=== PATIENT | male | born 1965 | race African-American/Black ===

== ENCOUNTER 2016-12-26 15:34 | Emergency (ER) | payer MEDICARE, OTHER ==
[2016-12-26 12:06] LABS: BASOPHILS 0.2 %; BASOPHILS ABSOLUTE 0.03 10/3/uL (0.0-0.16); EOSINOPHILS 1.1 %; EOSINOPHILS ABSOLUTE 0.18 10/3/uL (0.0-0.53); HEMOGLOBIN 12.5 g/dL (13.6-17.8); IMMATURE GRANULOCYTES 0.4 %; IMMATURE GRANULOCYTES ABSOLUTE 0.06 10/3/uL (0.0-0.11); LYMPHOCYTES 11.1 %; LYMPHOCYTES ABSOLUTE 1.75 10/3/uL (0.67-4.30); MEAN CORPUS HGB CONC 33.3 g/dL (32.0-36.0); MEAN CORPUSCULAR HEMOGLOB 28.6 pg (26.0-34.0); MEAN PLATELET VOLUME 11.5 fL (9.2-13.0); MONOCYTES 7.2 %; MONOCYTES ABSOLUTE 1.14 10/3/uL (0.21-1.20); NEUTROPHILS ABSOLUTE 12.65 10/3/uL (2.02-8.40); PLATELET COUNT 120 10/3/uL (150-400); RBC DISTRIBUTION WIDTH 14.3 % (12.0-16.0); RED CELL COUNT 4.37 10/6/uL (4.7-6.1)
[2016-12-26 12:09] LABS: ASCORBIC ACID (UR NOT ORDER) 40 (NEG); BILIRUBIN, URINE NEGATIVE (NEG); ER URINALYSIS TAT 0 Hrs 09 Mins; KETONE, URINE NEGATIVE (NEG); LEUKOCYTE ESTERASE(NOT OR NEG (NEG); NITRITE (URINE) NEG (NEG); WBC (NOT ORDERED) (RFLEX) < 1 (0-5)
[2016-12-26 12:14] LABS: ER CBC TAT 0 Hrs 14 Mins; HEMATOCRIT 37.5 % (40.0-51.0); MANUAL DIFF NO %; MEAN CORPUSCULAR VOLUME 85.8 fL (80-100); WHITE BLOOD CELLS 15.8 10/3/uL (4.5-10.5)
[2016-12-26 12:23] LABS: A/G RATIO 0.9 (0.7-1.9); ALBUMIN 3.8 G/DL (3.5-5.0); CALCIUM, SERUM 8.6 MG/DL (8.5-10.4); CHLORIDE, SERUM 106 MMOL/L (96-112); CO2 (CARBON DIOXIDE) 28 MMOL/L (24-34); CREATININE 4.08 MG/DL (0.70-1.30); GFR AFRICAN AMERICAN 18 ML/MIN (>=60); GFR NON AFRICAN AMERICAN 16 ML/MIN (>=60); GLOBULIN 4.3 G/DL (2.5-4.1); GLUCOSE, SERUM 170 MG/DL (60-99); POTASSIUM, SERUM 4.4 MMOL/L (3.5-5.3); SGOT(AST) 16 U/L (5-40); SGPT(ALT) 27 U/L (5-65); SODIUM, SERUM 140 MMOL/L (135-148); TOTAL BILIRUBIN 0.5 MG/DL (0-1.2); TOTAL PROTEIN 8.1 G/DL (6.0-8.5)
[2016-12-26 12:24] LABS: ALKALINE PHOSPHATASE 98 U/L (45-117); BUN (BLOOD UREA NITROGEN) 56 MG/DL (6-23)
[2016-12-26 15:21] LABS: CPK 697 U/L (0-200); TROPONIN I 0.04 NG/ML (<0.05)
[2016-12-26 15:22] LABS: CK-MB 2.3 NG/ML
[~2016-12-26 15:34] MED LIST: APRES10B PO; APRES50 PO; ASAB PO; BRIMONIDINE0.2 % OPH; BUSPAR10 PO; CLARIT10 PO; COREG12 PO; COREG25 PO; COZ25 PO; DEMA20 PO; FERROUS SULF324 MG PO; FIORICET 50-301 EACH PO; FIORICET-COD 51 EACH PO; IMDUR30 PO; IMDUR60 PO; KLOR-CON M2020 MEQ PO; L40 PO; LANTUS SC; LIPITOR10 PO; LIQUID TEARS OPH; NOVOLOG SC; REFRESH OPH; ROCALTROL 0.0.25 MCG PO; ROCALTROL0.25 MCG PO; SUPER B COMP PO; SYMAX-SL0.125 MG PO; TRAZ100 PO; VIST25 PO; VITAMIN B COMPLEX PO; VITAMIN D1000 UNI1 PO; VITAMIN D31000 UNIT PO; VITC500 PO; Z100 PO
[2016-12-26 15:47] LABS: INFLUENZA A SCREEN NEGATIVE (NEGATIVE); INFLUENZA B SCREEN NEGATIVE (NEGATIVE)
[2016-12-26] MEDS ORDERED: VITAMIN B PO (15:50)
[2016-12-26] MEDS ORDERED: BUSPAR10 PO (15:50)
[2016-12-26] MEDS ORDERED: Z100 PO (15:51)
[2016-12-26] MEDS ORDERED: COZ25 PO (15:52)
[2016-12-26] MEDS ORDERED: DEMA20 PO (15:52)
[2016-12-26] MEDS ORDERED: ASAB PO (15:53)
[2016-12-26] MEDS ORDERED: COREG12 PO (15:53)
[2016-12-26] MEDS ORDERED: KDUR20 PO (15:53)
[2016-12-26] MEDS ORDERED: NOVOLOG SC (15:54)
[2016-12-26] MEDS ORDERED: VITC500 PO (15:54)
[2016-12-26] MEDS ORDERED: LANTUS SC (15:54)
[2016-12-26] MEDS ORDERED: TYLENOL PO (15:55)
[2016-12-26] MEDS ORDERED: XALAT OPH (15:56)
[2016-12-26] MEDS ORDERED: TEARS PURE OPH (15:57)
[2016-12-26 16:10] LABS: PROCALCITONIN 0.09 ng/mL (<0.5)
[2016-12-26 17:15] LABS: ACETONE NEG
[2016-12-26 22:34] LABS: ALLENS TEST Pos; BE (BASE EXCESS) -0.6 MEQ/L (0 +/- 2.5); CARBOXYHEMOGLOBIN 2.6 % (0-3); HEMOBLOGIN CONTENT 12.4 G/DL (14-18); INSTRUMENT SERIAL # 8087; METHEMOGLOBIN 0.3 % (0-3); O2 CONTENT 15.8 VOL% (18-24); OPERATOR ID 32214; PCO2 (CO2 TENSION) 40 MMHG (35-45); PO2 (O2 TENSION) 67 MMHG (79-93); SAMPLE Arterial
== END 2016-12-26 18:30 | disposition home or self-care (01) ==
LOC: ER 15:34
PROVIDERS: Hospitalist; Nurse Practitioner Family
DX: E11.22 Type 2 diabetes mellitus with diabetic chronic kidney disease (principal); I12.9 Hypertensive chronic kidney disease with stage 1 through stage 4 chronic kidney disease, or unspecified chronic kidney disease; N18.9 Chronic kidney disease, unspecified; D72.829 Elevated white blood cell count, unspecified; D53.9 Nutritional anemia, unspecified; Z91.041 Radiographic dye allergy status; Z88.8 Allergy status to other drugs, medicaments and biological substances; Z79.82 Long term (current) use of aspirin; Z79.4 Long term (current) use of insulin; Z79.899 Other long term (current) drug therapy
CPT/HCPCS: 36600; 71020; 80053; 81001; 82009; 82550; 82553; 82805; 83605; 83690; 84145; 84300; 84484; 85025; 85652; 87040; 87045; 87046; 87046-59; 87070; 87328; 87329; 87493; 87493-59; 87804; 87880; 87899; 87899-59; 89055; 99285

== ENCOUNTER 2017-02-12 23:11 | Inpatient (IN) | payer MEDICARE, OTHER ==
--- NOTE | ~2017-02-12 | DS ---
Discharge Summary [facility] [address] [place]. [address] NAME: RENEE HALL : 65 STATUS : ADM IN [facility]#: [id number] AGE: 52 ADM/REG DATE : 02/13/17 MR#: [id number] REPORT SERV DATE: 02/16/17 DICTATED BY: DATE: REPORT STATUS : Draft TRANSCRIBED BY: MODL DATE: 02/15/17 ADMISSION DATE: 02/13/2017 DISCHARGE DATE: DISCHARGE DIAGNOSES: Are as follows: 1. End-stage renal disease. 2. Nonhealing left foot ulcer, followed chronically at [facility]. 3. Diabetes mellitus type 2. 4. Hypertension. 5. Neuropathy. 6. Retinopathy. 7. Hyperlipidemia. 8. Migraine headaches. 9. Charcot left foot. 10.Glaucoma. DISCHARGE MEDICATIONS: Include the following: Allopurinol 200 mg daily, vitamin C 500 mg daily, ASA 81 mg daily, Lipitor 10 mg p.o. at bedtime, BuSpar 10 mg p.o. b.i.d., carvedilol 12.5 mg p.o. b.i.d., Lantus insulin 50 units subcu at bedtime, NovoLog 10 units subcu prior to meals, Xalatan ophthalmic solution OPH at bedtime, losartan 25 mg on non-dialysis days, K Dur 20 mEq p.o. daily, Demadex 80 mg on non-dialysis days, vitamin B-complex one tab p.o. daily, Tylenol 2 tabs p.o. p.r.n. for pain or fever, and Artificial Tears solution p.r.n. Vancomycin has been administered post dialysis and will be continued with instructions of Dr. Perera. DISCHARGE CONDITION: Stable. DISCHARGE DISPOSITION: To home with plans to resume as per previous with followup with his usual hemodialysis and at the [facility]. HOSPITAL COURSE: This is a very pleasant, 52-year-old, male patient who presented to [facility] on 02/13/2017 with primary complaint of a nonhealing left foot ulcer with ongoing difficulty with intermittent fever. He has been followed on a regular basis in the outpatient setting in the [facility] and was on p.o. antibiotics by his report. During his hospital stay, he has been evaluated by Dr. Perera who feels he is safe to return to home and continue regular followup at the [facility] as per his previous treatment. Wound was cultured here and was positive for MRSA, and he is currently on IV antibiotics in the form of vancomycin and Zosyn. The Zosyn will be discontinued as of today with positive cultures for MRSA which are sensitive to vancomycin. Duration of vancomycin treatment will be per Dr. Perera's instructions on discharge at his dialysis treatment. He will resume his previous follow-ups at the [facility] Center on a regular basis and continue his usual plan of care at home. The patient does have a question today regarding some level of protection in the form of a walking boot or assistive devices to protect his left foot during ambulation, and I have asked the nurse to contact Dr. Perera in regard to a safe protective mechanism prior to discharge today as well. The patient will be discharged home via personal vehicle after hemodialysis today. Return to previous dialysis schedule and Discharge Summary [address] [place]. [address] NAME: RENEE HALL : 65 STATUS : ADM IN [facility]#: [id number] AGE: 52 ADM/REG DATE : 02/13/17 MR#: [id number] REPORT SERV DATE: 02/16/17 DICTATED BY: DATE: REPORT STATUS : Draft TRANSCRIBED BY: REID DATE: 02/15/17 return to [facility] Center. Treatment duration and questions regarding his left foot wound will be deferred to Dr. Perera and will be reflected in his discharge instructions today. DICTATED BY: Damian Merrill NP JR/REID Damian Merrill NP / [id number] CC: Vadim Colón M.D.
--- NOTE | ~2017-02-12 | HP ---
History And Physical [place] [id number] [facility] [place]. [address] NAME: RENEE HALL : 65 STATUS : ADM IN [facility]#: [id number] AGE: 52 ADM/REG DATE : 02/13/17 MR#: [id number] REPORT SERV DATE: 02/13/17 DICTATED BY: DATE: REPORT STATUS : Draft TRANSCRIBED BY: MODL DATE: 02/13/17 DATE OF ADMISSION: 02/13/2017 REASON FOR ADMISSION: Nonhealing left foot ulcer. HISTORY OF PRESENT ILLNESS: A very pleasant 52-year-old male patient, who dialyzes on a Monday, Monday, Monday schedule. He has chronically been followed at the [facility], has had difficulty with nonhealing left foot ulcer. He reports intermittent difficulty with fevers and has presented here to [facility] for further evaluation and consultation with supportive care. Empiric antibiotics in the form of vancomycin and Zosyn have been initiated. According to admitting orders from the emergency department, the patient is lying awake and alert during evaluation this morning. His family members are present and he has no other complaints. PAST MEDICAL HISTORY: Positive for end-stage renal disease, Monday, Monday, Monday dialysis via left upper extremity fistula. History is also positive for diabetes mellitus type 2, hypertension, anemia, peripheral neuropathy, hyperlipidemia, migraine headaches, Charcot left foot, and glaucoma. Previous complaints of chest pain with negative coronary angiography with ejection fraction noted on 10/29/2015 dismissal summary at 60%. SOCIAL HISTORY: No ETOH. No illicit drugs. No tobacco. Medications and allergies include the following: ALLERGIES: HE LISTS ALLERGIES TO CONTRAST MEDIUM, ORAL AND IV. HE ALSO LISTS MEDICATION ALLERGY LISINOPRIL. ACTIVE MEDICATIONS: Include allopurinol 200 mg p.o. at bedtime, Artificial Tears one drop OPH b.i.d. p.r.n., vitamin C 500 mg p.o. daily, ASA 81 mg daily, Lipitor 10 mg p.o. daily, B complex one p.o. daily, BuSpar 10 mg p.o. b.i.d., Coreg 12.5 mg p.o. b.i.d., NovoLog 10 units subcu prior to meals, Lantus subcu at bedtime, Xalatan one drop OPH at bedtime, Cozaar 25 mg p.o. Monday, , Monday, Monday, K-Dur 20 mEq p.o. daily, Demadex 80 mg nondialysis days, Tylenol two tabs p.r.n. REVIEW OF SYSTEMS: Completed. Please see HPI for pertinent details. PHYSICAL EXAMINATION: VITAL SIGNS: Blood pressure 128/61, heart rate 84 beats per minute and regular, temperature at 99.0, respiratory rate at 18, O2 saturation at 96%. GENERAL: He is awake, alert, and oriented x3. No acute distress during evaluation. HEENT: Normocephalic, atraumatic. Normal ocular movements. No scleral icterus. Conjunctival pallor is appreciated. Known visual deficit. NECK: Supple without thyromegaly. No JVD. No mass. CHEST: Shows positive S1, S2. No rubs or gallops. LUNGS: Diminished throughout with normal expansion and effort bilaterally. No rhonchi or History And Physical [address] [address] NAME: RENEE HALL : 65 STATUS : ADM IN [facility]#: [id number] AGE: 52 ADM/REG DATE : 02/13/17 MR#: [id number] REPORT SERV DATE: 02/13/17 DICTATED BY: DATE: REPORT STATUS : Draft TRANSCRIBED BY: REID DATE: 02/13/17 wheezes appreciated on auscultation. GI: Shows positive bowel sounds in all four quadrants. No appreciable mass or tenderness. EXTREMITIES: Show positive pulses to all four extremities. He does have a left upper extremity access in place with palpable bruit and thrill. Does have a left lower extremity wound that is wrapped with dry gauze dressing to his left foot. : Deferred. NEUROLOGIC: He appears to be grossly intact. Nonfocal and he is of appropriate mood and affect. LABORATORY DATA: Pertinent laboratories and imaging to this evaluation, culture of the left foot wound is currently in process rather left foot x-ray shows Charcot changes to the mid left foot without definitive plain film evidence of osteomyelitis, soft-tissue infection with soft tissue gas in the plantar aspect. Procalcitonin is 0.24. Sodium 140, potassium 4.1, chloride 103, CO2 of 29, BUN 54, creatinine 4.77. Reflected GFR of 15 mL/minute, glucose of 111, calcium 8.4. CBC shows a white blood cell count at 10.1, RBC is 3.66, hemoglobin at 9.8, hematocrit 30.8, platelets at 140. IMPRESSION AND PLAN: This is a very pleasant 52-year-old, male patient with end-stage renal disease with dialysis maintenance on Monday, Monday, Monday via left upper extremity access, now presenting to [facility] with ongoing difficulty with left foot wound followed chronically in the outpatient setting and W[facility] Center. Place the patient in his usual hemodialysis schedule on Monday, Monday, Monday. Ask nursing wound care to evaluate his left lower extremity wound. Empiric vancomycin and Zosyn. His procalcitonin is not elevated. He does not show an elevation in white count. Do not show clinical reasoning at this point to collect blood cultures or further culture workup. Wound culture is currently ongoing. There is no definitive evidence of osteomyelitis listed on his radiologic workup at this point. However, there the wording of the impression suggests that there may be some level of question of osteomyelitis. We will check a CT without contrast of his left foot. If it is difficult to rule that out, consider Surgical Services' evaluation as noted. Vancomycin and Zosyn as in place. Sliding scale insulin. Home medications. PT/OT evaluation as needed. Further modification of treatment and plan may be made based on clinical presentation, the patient's laboratory results, further consultation with renal attending. /REID Damian Merrill NP / [id number] CC: Vadim Colón M.D.
[~2017-02-12 23:11] MED LIST changes: +KDUR20 PO; +TEARS PURE OPH; +TYLENOL PO; +VITAMIN B PO; +XALAT OPH
[2017-02-13] MEDS ORDERED: LIPITOR10 PO (00:54)
[2017-02-13 01:50] LABS: BASOPHILS 0.2 %; BASOPHILS ABSOLUTE 0.02 10/3/uL (0.0-0.16); EOSINOPHILS 4.8 %; EOSINOPHILS ABSOLUTE 0.49 10/3/uL (0.0-0.53); ER CBC TAT 0 Hrs 05 Mins; HEMOGLOBIN 9.8 g/dL (13.6-17.8); IMMATURE GRANULOCYTES 0.3 %; IMMATURE GRANULOCYTES ABSOLUTE 0.03 10/3/uL (0.0-0.11); LYMPHOCYTES ABSOLUTE 1.72 10/3/uL (0.67-4.30); MEAN CORPUS HGB CONC 31.8 g/dL (32.0-36.0); MEAN CORPUSCULAR HEMOGLOB 26.8 pg (26.0-34.0); MEAN CORPUSCULAR VOLUME 84.2 fL (80-100); MEAN PLATELET VOLUME 10.4 fL (9.2-13.0); MONOCYTES 8.8 %; MONOCYTES ABSOLUTE 0.89 10/3/uL (0.21-1.20); NEUTROPHILS 68.9 %; NEUTROPHILS ABSOLUTE 6.96 10/3/uL (2.02-8.40); PLATELET COUNT 140 10/3/uL (150-400); RED CELL COUNT 3.66 10/6/uL (4.7-6.1); WHITE BLOOD CELLS 10.1 10/3/uL (4.5-10.5)
[2017-02-13 01:51] LABS: HEMATOCRIT 30.8 % (40.0-51.0); MANUAL DIFF NO %
[2017-02-13 02:03] LABS: CALCIUM, SERUM 8.4 MG/DL (8.5-10.4); CHLORIDE, SERUM 103 MMOL/L (96-112); CO2 (CARBON DIOXIDE) 29 MMOL/L (24-34); CREATININE 4.77 MG/DL (0.70-1.30); GFR AFRICAN AMERICAN 15 ML/MIN (>=60); GFR NON AFRICAN AMERICAN 13 ML/MIN (>=60); POTASSIUM, SERUM 4.1 MMOL/L (3.5-5.3); SODIUM, SERUM 140 MMOL/L (135-148)
[2017-02-13 02:04] LABS: BUN (BLOOD UREA NITROGEN) 54 MG/DL (6-23); GLUCOSE, SERUM 111 MG/DL (60-99)
[2017-02-13 02:53] LABS: PROCALCITONIN 0.24 ng/mL (<0.5)
[2017-02-14 05:30] LABS: BASOPHILS 0.5 %; BASOPHILS ABSOLUTE 0.04 10/3/uL (0.0-0.16); EOSINOPHILS 6.2 %; EOSINOPHILS ABSOLUTE 0.48 10/3/uL (0.0-0.53); HEMATOCRIT 31.3 % (40.0-51.0); IMMATURE GRANULOCYTES 0.4 %; IMMATURE GRANULOCYTES ABSOLUTE 0.03 10/3/uL (0.0-0.11); LYMPHOCYTES 22.4 %; LYMPHOCYTES ABSOLUTE 1.75 10/3/uL (0.67-4.30); MEAN CORPUS HGB CONC 31.9 g/dL (32.0-36.0); MEAN CORPUSCULAR HEMOGLOB 27.3 pg (26.0-34.0); MEAN CORPUSCULAR VOLUME 85.5 fL (80-100); MEAN PLATELET VOLUME 10.3 fL (9.2-13.0); MONOCYTES 6.8 %; MONOCYTES ABSOLUTE 0.53 10/3/uL (0.21-1.20); NEUTROPHILS 63.7 %; NEUTROPHILS ABSOLUTE 4.97 10/3/uL (2.02-8.40); PLATELET COUNT 158 10/3/uL (150-400); RBC DISTRIBUTION WIDTH 13.9 % (12.0-16.0); RED CELL COUNT 3.66 10/6/uL (4.7-6.1); WHITE BLOOD CELLS 7.8 10/3/uL (4.5-10.5)
[2017-02-14 05:31] LABS: MANUAL DIFF NO %
[2017-02-14 05:45] LABS: ALBUMIN 2.9 G/DL (3.5-5.0); BUN (BLOOD UREA NITROGEN) 34 MG/DL (6-23); CALCIUM, SERUM 8.6 MG/DL (8.5-10.4); CHLORIDE, SERUM 105 MMOL/L (96-112); CO2 (CARBON DIOXIDE) 27 MMOL/L (24-34); CREATININE 3.53 MG/DL (0.70-1.30); GFR AFRICAN AMERICAN 22 ML/MIN (>=60); GFR NON AFRICAN AMERICAN 19 ML/MIN (>=60); GLUCOSE, SERUM 147 MG/DL (60-99); PHOSPHORUS, SERUM 3.6 MG/DL (2.5-4.5); POTASSIUM, SERUM 4.1 MMOL/L (3.5-5.3); SODIUM, SERUM 138 MMOL/L (135-148)
[2017-02-15 06:35] LABS: BASOPHILS 0.6 %; BASOPHILS ABSOLUTE 0.04 10/3/uL (0.0-0.16); EOSINOPHILS 7.3 %; EOSINOPHILS ABSOLUTE 0.48 10/3/uL (0.0-0.53); HEMOGLOBIN 9.8 g/dL (13.6-17.8); IMMATURE GRANULOCYTES 0.3 %; IMMATURE GRANULOCYTES ABSOLUTE 0.02 10/3/uL (0.0-0.11); LYMPHOCYTES 28.7 %; LYMPHOCYTES ABSOLUTE 1.89 10/3/uL (0.67-4.30); MEAN CORPUS HGB CONC 31.6 g/dL (32.0-36.0); MEAN CORPUSCULAR HEMOGLOB 26.8 pg (26.0-34.0); MEAN CORPUSCULAR VOLUME 84.7 fL (80-100); MEAN PLATELET VOLUME 10.6 fL (9.2-13.0); MONOCYTES 8.5 %; MONOCYTES ABSOLUTE 0.56 10/3/uL (0.21-1.20); NEUTROPHILS 54.6 %; NEUTROPHILS ABSOLUTE 3.59 10/3/uL (2.02-8.40); PLATELET COUNT 189 10/3/uL (150-400); RBC DISTRIBUTION WIDTH 13.9 % (12.0-16.0); RED CELL COUNT 3.66 10/6/uL (4.7-6.1); WHITE BLOOD CELLS 6.6 10/3/uL (4.5-10.5)
[2017-02-15 06:38] LABS: MANUAL DIFF NO %
[2017-02-15 06:53] LABS: BUN (BLOOD UREA NITROGEN) 45 MG/DL (6-23); CHLORIDE, SERUM 106 MMOL/L (96-112); CO2 (CARBON DIOXIDE) 27 MMOL/L (24-34); CREATININE 3.74 MG/DL (0.70-1.30); GFR AFRICAN AMERICAN 20 ML/MIN (>=60); GFR NON AFRICAN AMERICAN 17 ML/MIN (>=60); GLUCOSE, SERUM 143 MG/DL (60-99); PHOSPHORUS, SERUM 4.4 MG/DL (2.5-4.5); SODIUM, SERUM 140 MMOL/L (135-148)
== END 2017-02-16 20:46 | DRG 638 ==
LOC: ER 23:11 → 4SO 02-13 02:13
PROVIDERS: Internal Medicine Nephrology; Registered Nurse; Specialist
PROC: 5A1D60Z (ICD-10-PCS; principal; 2017-02-13)
DX: E11.621 Type 2 diabetes mellitus with foot ulcer (principal); I12.0 Hypertensive chronic kidney disease with stage 5 chronic kidney disease or end stage renal disease; N18.6 End stage renal disease; E11.22 Type 2 diabetes mellitus with diabetic chronic kidney disease; E78.5 Hyperlipidemia, unspecified; E11.610 Type 2 diabetes mellitus with diabetic neuropathic arthropathy; D63.1 Anemia in chronic kidney disease; G62.9 Polyneuropathy, unspecified; H40.9 Unspecified glaucoma; Z99.2 Dependence on renal dialysis; Z79.82 Long term (current) use of aspirin; Z79.4 Long term (current) use of insulin; Z79.899 Other long term (current) drug therapy; Z88.8 Allergy status to other drugs, medicaments and biological substances; Z91.041 Radiographic dye allergy status
CPT/HCPCS: 73630-LT; 73700-LT; 80048; 80069; 80202; 82962; 83735; 84145; 85025; 87040; 87070; 87077; 87186; 87205; 99284; A9270-GY; G0257; J2543; J3370